=== PATIENT | female | born 1995 | race Hispanic/Latino ===

== ENCOUNTER 2018-11-12 14:01 | Emergency (ER) | payer OTHER ==
[2018-11-12] MEDS ORDERED: DEXAMETHASONE SOD PHOSPHATE 10MG/ML 1ML VIAL ONE (14:51)
[2018-11-12] MEDS ORDERED: DIPHENHYDRAMINE HCL 25 MG CAPSULE ONE (14:52)
== END 2018-11-12 15:55 | disposition home or self-care (01) ==
LOC: EDH 14:01
DX: L25.9 Unspecified contact dermatitis, unspecified cause (principal); K21.9 Gastro-esophageal reflux disease without esophagitis; Z72.0 Tobacco use
CPT/HCPCS: 96372; 99283; J1100; Q0163